=== PATIENT | male | born 1990 | race American Indian/Alaskan Native ===

== ENCOUNTER 2018-12-15 16:57 | Emergency (ER) | payer SELFPAY ==
--- NOTE | 2018-12-15 17:16 | Event Note ---
ED Screening Note ED Screening Note: co wrist pain no known trauma per pt This initial assessment/diagnostic orders/clinical plan/treatment(s) is/are subject to change based on patients health status, clinical progression and re- assessment by fellow clinical providers in the ED. Further treatment and workup at subsequent clinical providers discretion. Patient/guardian urged not to elope from the ED as their condition may be serious if not clinically assessed and managed. Initial orders include: xray
[2018-12-15 17:31] VITALS: BP 134/56
--- NOTE | 2018-12-15 17:38 | XRay Report ---
PROCEDURE: XR WRIST 3+V RT TECHNIQUE: 3 views of the wrist HISTORY: pain r wrist COMPARISONS: FINDINGS: No acute fracture identified. No dislocation seen. Distal radius and ulna are intact. Joint spaces ar e unremarkable. IMPRESSION: Negative wrist series. This document is electronically signed by Wei Holly MD., December 15 2018 05:36:11 PM ET
--- NOTE | 2018-12-15 18:06 | Emergency Department Report ---
ED Upper Extremity Inj HPI - General Chief Complaint: Extremity Injury, Upper Stated Complaint: ARM PAIN Time Seen by Provider: 12/15/18 17:04 Source: patient Mode of arrival: Ambulatory Limitations: No Limitations - History of Present Illness Initial Comments: 28 yo with r wrist pain. no known trauma or injury. he noticed it started hurting at work. he has done nothing at home to dec the pain pmh none rx none MD Complaint: Injury to:: right -: Gradual Other Extremity Injury: Wrist: Right Other Injuries: none Improves With: none Worsens With: movement of extremity Associated Symptoms: denies other symptoms - Related Data Allergies Allergy/AdvReac Type Severity Reaction Status Date / Time No Known Allergies Allergy Verified 12/15/18 17:01 ED Review of Systems ROS: Stated complaint: ARM PAIN Other details as noted in HPI Comment: All other systems reviewed and negative ED Past Medical Hx - Past Medical History Previous Medical History?: Yes Hx Asthma: Yes - Surgical History Past Surgical History?: No - Family History Family history: no significant - Social History Substance Use Type: Alcohol ED Physical Exam - General Limitations: No Limitations General appearance: alert - Head Head exam: Present: atraumatic - Eye Eye exam: Present: normal appearance - ENT ENT exam: Present: mucous membranes moist - Neck Neck exam: Present: normal inspection - Respiratory Respiratory exam: Present: normal lung sounds bilaterally - Cardiovascular Cardiovascular Exam: Present: regular rate - GI/Abdominal GI/Abdominal exam: Present: soft, normal bowel sounds - Rectal Rectal exam: Present: deferred - Expanded Upper Extremity Exam Right Elbow exam: Present: normal inspection, full ROM. Absent: tenderness, swelling, abrasion, laceration, ecchymosis, deformity Forearm Wrist exam: Present: normal inspection, full ROM. Absent: tenderness, swelling, abrasion, laceration, ecchymosis Hand Wrist exam: Present: normal inspection, full ROM. Absent: tenderness, swelling, abrasion Vascular: Present: normal capillary refill - Back Exam Back exam: Present: normal inspection - Neurological Exam Neurological exam: Present: alert, oriented X3, CN II-XII intact - Psychiatric Psychiatric exam: Present: normal affect, normal mood ED Course Vital Signs 12/15/18 17:29 Temperature 98 F Pulse Rate 65 Respiratory 18 Rate Blood Pressure 134/56 [Left] O2 Sat by Pulse 98 Oximetry ED Medical Decision Making - Radiology Data Radiology results: report reviewed, image reviewed - Medical Decision Making neurovasc intact full ROM xray neg dc home with dc plan of care and follow up with pcp Vital Signs 12/15/18 17:29 Temperature 98 F Pulse Rate 65 Respiratory 18 Rate Blood Pressure 134/56 [Left] O2 Sat by Pulse 98 Oximetry - Differential Diagnosis ro fracture Critical care attestation.: If time is entered above; I have spent that time in minutes in the direct care of this critically ill patient, excluding procedure time. ED Disposition Clinical Impression: Wrist strain Disposition: DC-01 TO HOME OR SELFCARE Is pt being admited?: No Does the pt Need Aspirin: No Condition: Stable Instructions: Wrist Injury (ED) Additional Instructions: MOTRIN OR TYLENOL FOR PAIN BRANDY FOR COMFORT NO HEAVY LIFTING WITH INVOLVED ARM ICE TONIGHT FOLLOW UP ORTHO ON TUESDAY REFERRAL BELOW Referrals: MARY BETH CRUZ MD [Staff Physician] - 3-5 Days Forms: Work/School Release Form(ED) Time of Disposition: 18:06
== END 2018-12-15 19:00 | disposition home or self-care (01) ==
LOC: ED 16:57
DX: S66.911A Strain of unspecified muscle, fascia and tendon at wrist and hand level, right hand, initial encounter (principal); X58.XXXA Exposure to other specified factors, initial encounter; Y93.89 Activity, other specified; Y92.89 Other specified places as the place of occurrence of the external cause; Y99.8 Other external cause status
CPT/HCPCS: 99283